=== PATIENT | male | born 1965 | race Caucasian/White ===

== ENCOUNTER → 2017-12-07 | Outpatient (CLI) | payer OTHER | END | disposition home or self-care (01) | LOC: RADCTMAIN 08:57 | PROVIDERS: ATTEND Family Medicine | DX: Z53.9 Procedure and treatment not carried out, unspecified reason (principal) ==

== ENCOUNTER → 2022-05-19 | Outpatient (CLI) | payer OTHER ==
--- NOTE | 2022-05-19 12:25 | CTL ---
EXAMINATION TYPE: CT Low Dose Lung cancer screening CT DLP: 45.5 mGycm Automated exposure control for dose reduction was used. SCREENING VISIT: Initial COMPARISON: 04/23/2010 TECHNIQUE: Low dose computed tomography scan was performed through the chest at 1 mm thick sections a nd reconstructed images in the coronal plane at [address] DIAGNOSTIC QUALITY: Satisfactory FINDINGS: LUNG NODULES: Present, detailed below: There is some streak opacity extending towards the right posterior lateral lung apex. This could be r elated to the bilateral apical thickening and scarring. Follow-up is recommended. LUNGS: COPD: Severity: Moderate Fibrosis: Severity: Mild Lymph nodes: None Other findings: None RIGHT PLEURAL SPACE: Effusion: None Calcification: None Thickening: None Pneumothorax: None LEFT PLEURAL SPACE: Effusion: None Calcification: None Thickening: None Pneumothorax: None HEART: Heart Size: Normal Coronary calcification: Minimal Pericardial effusion: None OTHER FINDINGS: Upper abdomen: Normal Bony thorax: Normal Supraclavicular region: Normal Other: Ascending thoracic aorta and main pulmonary artery is 3.5 cm. Main pulmonary artery bifurcatio n is 1.9 cm. IMPRESSION: 1. There appears to be scarring at the bilateral lung apices, more so on the right. Consider follow-u p exam in [address] CHEST RECOMMENDATION: Follow up standard CT chest [address] LUNG RAD: Lung-Rad 3 Probably Benign
== END | disposition home or self-care (01) ==
LOC: RADCTMAIN 08:00
PROVIDERS: ATTEND Family Medicine
DX: Z12.2 Encounter for screening for malignant neoplasm of respiratory organs (principal); J98.4 Other disorders of lung; Z87.891 Personal history of nicotine dependence
CPT/HCPCS: 71271

== ENCOUNTER → 2023-02-12 | Outpatient (CLI) | payer OTHER ==
--- NOTE | 2023-02-12 09:57 | CT ---
EXAMINATION TYPE: CT lumbar spine wo con CT DLP: 475.50 mGycm, Automated exposure control for dose reduction was used. DATE OF EXAM: 02/12/2023 9:50 AM COMPARISON: None. CLINICAL INDICATION:Male, 57 years old with history of M51.36 OTHER INTERVERTEBRAL DISC DEGENERATION; PHH, Other intervertebral disc degeneration TECHNIQUE: Multiple axial images were obtained from the midportion of T11 through the sacroiliac hanna nts. Soft tissue and bone windows in coronal and sagittal planes were obtained and reviewed. FINDINGS: Alignment: There are 5 lumbar type vertebral bodies within normal alignment. Bone: No evidence of fracture is identified. Discs: Multilevel Schmorl's nodes. T12-L1: No spinal canal or neural foraminal stenosis is identified. L1-L2: No spinal canal or neural foraminal stenosis is identified. L2-L3: No spinal canal or neural foraminal stenosis is identified. L3-L4: Broad-based disc bulge with minimal effacement of anterior thecal sac. No significant neural f oraminal stenosis. L4-L5: Broad-based disc bulge with minimal effacement of anterior thecal sac. Minimal bilateral neur al foraminal stenosis. L5-S1: Broad-based disc bulge without significant central canal or neural foraminal stenosis. Other: Centrilobular emphysematous changes demonstrated within the lungs IMPRESSION: 1. No evidence of fracture of the lumbar spine. 2. Minimal multilevel degenerative disc disease at L3-L4 and L4-L5. 3. COPD changes.
== END | disposition home or self-care (01) ==
LOC: RADCTMAIN 09:27
PROVIDERS: ATTEND Family Medicine
DX: M51.36 Other intervertebral disc degeneration, lumbar region (principal); J44.9 Chronic obstructive pulmonary disease, unspecified
CPT/HCPCS: 72131

== ENCOUNTER → 2024-07-25 | Outpatient (CLI) | payer OTHER ==
--- NOTE | 2024-07-26 15:55 | MR ---
INDICATION: Patient age:Male; 59 years old; Reason for study: M54.12; H. COMPARISON: None. TECHNIQUE: Multi planar, multi sequence imaging of the cervical spine was performed before and after the uneventful administration of 5 mL of Gadobutrol intravenously. FINDINGS: Alignment: The cervical vertebral bodies have preserved heights. Alignment is within normal limits gi nicky patient positioning. Bones: Bone signal is within normal limits. No abnormal STIR signal. Cord: The spinal cord is unremarkable with regards to their signal intensity and morphology. No abnor mal contrast enhancement. Discs: Multilevel disc desiccation is present. C2-C3: No significant disc pathology. The spinal canal is patent. No neural foraminal stenosis. C3-C4: No significant disc pathology. The spinal canal is patent. No neural foraminal stenosis. C4-C5: No significant disc pathology. The spinal canal is patent. No neural foraminal stenosis. C5-C6: No significant disc pathology. The spinal canal is patent. No neural foraminal stenosis. C6-C7: Broad-based disc bulge with minimal effacement of the anterior thecal sac. Uncovertebral joint hypertrophy with mild right neural foraminal stenosis. The left neural foramen is patent. No neural foraminal stenosis. C7-T1: No significant disc pathology. The spinal canal is patent. No neural foraminal stenosis. Other: None. IMPRESSION: 1. No evidence for disc herniation or significant spinal canal stenosis. No abnormal contrast enhance ment. 2. Mild degenerative disc disease and uncovertebral joint hypertrophy at C6-C7 with mild right neural foraminal stenosis. [facility], , 07/26/2024 3:53 PM
== END | disposition home or self-care (01) ==
LOC: RADMRIMAIN 19:00
PROVIDERS: ATTEND Family Medicine
DX: M50.123 Cervical disc disorder at C6-C7 level with radiculopathy (principal); M47.22 Other spondylosis with radiculopathy, cervical region; M99.71 Connective tissue and disc stenosis of intervertebral foramina of cervical region
CPT/HCPCS: 72156; A9585